=== PATIENT | male | born 1980 | race Caucasian/White ===

== ENCOUNTER 2016-07-21 21:24 | Emergency (ER) | payer BC ==
--- NOTE | ~2016-07-21 | CT2 ---
[facility] A Service [facility] RADIOLOGY TEXT RESULTS PATIENT: WENDY HADDAD LOCATION: SED : 84 UNIT #: [id number] AGE: [address]: Ritesh Dowd MD SEX: M ORDER DR: [id number] [address] [address] [id number] E MR#: [id number] Acc #: [id number] NAME: WENDY HADDAD. : 1980 SEX: M STUDY DATE/TIME: 07/21/2016 22:56 UNIT: SED ROOM: STUDY DESCRIPTION: CT Abd and Pelv W Cont Attending Physician: Ritesh Dowd M.D. Ordering Physician: Ritesh Dowd M.D. Primary Care Physician: Primary Care Physician No MEDICAL IMAGING REPORT This report is preliminary unless electronic signature is present. EXAM CT abdomen and pelvis with contrast DATE 07/21/2016 HISTORY 35-year-old male with complaints of left lower quadrant abdominal pain and diarrhea for 10 days. COMPARISON None. PROCEDURE 5 mm axial images from the lung bases through the lesser trochanters after intravenous contrast administration. Enteric contrast was not administered. Sagittal and coronal reformatted images were obtained. This CT exam was performed with one or more of the following radiation dose reduction techniques: Automatic exposure control, adjustment of mA and/or kV according to patient size, and iterative reconstruction. FINDINGS ABDOMEN FINDINGS: Lung bases are clear. Heart size is normal. The liver, gallbladder, spleen, pancreas, adrenals and kidneys are within normal limits. Limited evaluation of bowel due to lack of enteric contrast. Diverticular changes are seen within the descending colon; however, there is no CT evidence of acute diverticulitis. The appendix is normal. No free air, free fluid or pathologically enlarged lymph nodes are identified. PELVIS FINDINGS: Urinary bladder, prostate and rectum are normal. No pelvic adenopathy or free fluid is seen. [facility] A Service [facility] RADIOLOGY TEXT RESULTS PATIENT: WENDY HADDAD LOCATION: SED : 82 UNIT #: [id number] AGE: [address]: Ritesh Dowd MD SEX: M ORDER DR: No acute osseous abnormalities are identified. IMPRESSION 1. No acute findings within the abdomen and pelvis. There is no CT explanation for the patient's left side abdominal pain. 2. Uncomplicated colonic diverticulosis without CT evidence of acute diverticulitis. Dictated by... Cady Garvey M.D. THIS IS AN ELECTRONICALLY VERIFIED REPORT Cady Garvey M.D. at 07/22/2016 10:02 PM [facility]/danish TD: 07/22/2016 01:38 JOB #: [id number] MEDICAL IMAGING REPORT Page 1 of 1
[2016-07-21 22:13] LABS: BASOPHIL% 0.6 % (0-2.5); EOSINOPHIL# 0.1 X10e3 (0-0.7); EOSINOPHIL% 1.4 % (0.0-7.0); HEMATOCRIT 47.7 % (38.0-50.0); HEMOGLOBIN 16.4 gm/dL (13.0-16.0); LYMPHOCYTE# 2.5 X10e3 (1.0-3.5); MEAN CELL VOLUME 85.1 FL (83-96); MEAN CORPUSCULAR HEMOGLOBIN 29.3 PG (28-34); MEAN CORPUSCULAR HGB CONC 34.5 g/dL (30-36); MEAN PLATELET VOLUME 7.5 FL (6.5-11.5); MONOCYTE# 0.5 X10e3 (0-1.0); MONOCYTE% 8.4 % (3.0-12.0); NEUTROPHIL% 48.6 % (40-75); PLATELET COUNT 246 X10e3 (140-420); RED BLOOD COUNT 5.61 X10e (3.90-5.60); WHITE BLOOD COUNT 6.2 X10e3 (4.0-10.5)
[2016-07-21 22:15] LABS: DIFF IND NO
[2016-07-21 22:16] LABS: URINE SOURCE CLEAN CATCH
[2016-07-21 22:18] LABS: MICRO INDICATED? YES; URINE APPEARANCE CLEAR; URINE BILIRUBIN NEG (NEG); URINE BLOOD TRACE-INTACT (NEG); URINE COLOR YELLOW; URINE GLUCOSE NEG (NORM); URINE KETONE NEG (NEG); URINE LEUKOCYTE ESTERASE NEG (NEG); URINE NITRATE NEG (NEG); URINE PROTEIN NEG (NEG); URINE UROBILINOGEN 0.2 MG/DL (NORM)
[2016-07-21 22:19] LABS: CULTURE INDICATED? NO; URINE BACTERIA NEG (NEG); URINE RBC 0-2 /[HPF] (0-2); URINE SQUAMOUS EPITHELIAL CELL FEW /[HPF]; URINE WBC NEG /[HPF] (0-5)
[2016-07-21 22:33] LABS: ALBUMIN SERUM 4.3 g/dL (3.5-5.0); ALKALINE PHOSPHATASE 51 U/L (32-92); ALT (SGPT) 25 U/L (10-40); AMYLASE 21 U/L (0-46); AST (SGOT) 22 U/L (10-42); BILIRUBIN,TOTAL 0.4 mg/dL (0.2-2.0); BLOOD UREA NITROGEN 15 mg/dL (9-23); BUN/CREATININE RATIO 18.75; CALCIUM SERUM 8.5 mg/dL (8.4-10.2); CARBON DIOXIDE 30 mmol/L (22-31); CHLORIDE 99 mmol/L (100-111); CREATININE SERUM 0.8 mg/dL (0.6-1.4); GLOM FILT RATE Estimated 117.4 mL/min (>60); GLUCOSE FASTING 84 mg/dL (70-110); LIPASE 23 U/L (22-51); POTASSIUM 3.5 mmol/L (3.5-5.1); PROTEIN TOTAL SERUM 7.4 g/dL (6.0-8.3); SODIUM 133 mmol/L (135-145)
[2016-07-21 22:34] LABS: BILIRUBIN, DIRECT <0.1 mg/dL (0.0-0.2); BILIRUBIN,INDIRECT 0.3 mg/dL (0.0-0.9)
== END 2016-07-22 00:21 | disposition home or self-care (01) ==
LOC: SED 21:24
PROVIDERS: Emergency Medicine
DX: K57.30 Diverticulosis of large intestine without perforation or abscess without bleeding (principal); F17.210 Nicotine dependence, cigarettes, uncomplicated
CPT/HCPCS: 36415; 74177; 80048; 80076; 81003; 82150; 83690; 85025; 96361; 96374; 96375; 99284; C9113; J1885; J2405; Q9967

== ENCOUNTER → 2016-08-28 | Outpatient (CLI) | payer BC ==
--- NOTE | ~2016-08-28 | CT2 ---
[facility] A Service of [facility] RADIOLOGY TEXT RESULTS PATIENT: WENDY HADDAD [facility] : 82 UNIT #: [id number] AGE: [address]: Kenn Lorenzo MD SEX: M ORDER DR: [id number] [facility] [address] [place], [place] [address] [id number] O MR#: [id number] Acc #: [id number] NAME: WENDY HADDAD. : 1980 SEX: M STUDY DATE/TIME: 08/28/2016 12:08 UNIT: CCA ROOM: STUDY DESCRIPTION: CT Abd and Pelv W Cont Attending Physician: Kenn Lorenzo M.D. Ordering Physician: Kenn Lorenzo M.D. Primary Care Physician: No Primary Care Physician MEDICAL IMAGING REPORT This report is preliminary unless electronic signature is present EXAM CT abdomen and pelvis with IV and oral contrast, 08/28/[address] abdomen and pelvis with oral and IV contrast with multiplanar reformates. This CT exam was performed with one or more of the following radiation dose reduction techniques: automatic exposure control, adjustment of mA and/or kV according to patient size, and iterative reconstruction. COMPARISON Prior study 07/21/16. CLINICAL HISTORY Left lower quadrant pain and diarrhea for 1 month. FINDINGS The lung bases are unremarkable except for some dependent atelectasis. ABDOMEN: The liver and gallbladder are normal. The spleen and pancreas are normal. The kidneys and adrenal glands are normal. The aorta is normal in caliber. There is no bowel obstruction, mass, adenopathy or inflammatory change. PELVIS: There is no pelvic mass or inflammatory change or abnormal fluid collection. There is evidence of scattered colonic diverticulosis, but there is no CT evidence to suggest diverticulitis. The appendix is normal. There is no hernia or bowel obstruction. IMPRESSION [facility] A Service [facility] RADIOLOGY TEXT RESULTS PATIENT: WENDY HADDAD LOCATION: [facility] : 82 UNIT #: [id number] AGE: [address]: Kenn Lorenzo MD SEX: M ORDER DR: Negative CT of the abdomen and pelvis. No renal, bowel or biliary obstruction. Limited diverticulosis, but no CT evidence of diverticulitis. Dictated by... Arian Quigley M.D. THIS IS AN ELECTRONICALLY VERIFIED REPORT Arian Quigley M.D. at 08/28/2016 10:46 PM [facility]/hank TD: 08/28/2016 22:17 JOB #: [id number] MEDICAL IMAGING REPORT Page 1 of 1 COPY
== END | disposition home or self-care (01) ==
LOC: CCAT 11:08
DX: K57.92 Diverticulitis of intestine, part unspecified, without perforation or abscess without bleeding (principal)
CPT/HCPCS: 74177; Q9967